=== PATIENT | male | born 1985 | race Two or more races ===

== ENCOUNTER 2018-11-24 14:04 | Emergency (ER) | payer SELFPAY ==
[~2018-11-24] VITALS: Ht 170.2 cm; Wt 81.6 kg
[2018-11-24 15:48] VITALS: BP 151/93
== END 2018-11-24 15:50 | disposition home or self-care (01) ==
LOC: ER 14:04
DX: S00.83XA Contusion of other part of head, initial encounter (principal); R03.0 Elevated blood-pressure reading, without diagnosis of hypertension; F17.210 Nicotine dependence, cigarettes, uncomplicated; W19.XXXA Unspecified fall, initial encounter; Y93.89 Activity, other specified; Y99.8 Other external cause status; Y92.89 Other specified places as the place of occurrence of the external cause
CPT/HCPCS: 70450; 70486